=== PATIENT | male | born 1960 | race Hispanic/Latino ===

== ENCOUNTER 2018-05-09 08:05 | Emergency (ER) | payer BC | END 2018-05-09 08:45 | disposition home or self-care (01) | LOC: ERS 08:05 | DX: L03.116 Cellulitis of left lower limb (principal); I10 Essential (primary) hypertension | CPT/HCPCS: 99283 ==

== ENCOUNTER 2020-06-30 10:14 | Emergency (ER) | payer BC ==
--- NOTE | 2020-06-30 11:23 | CT ---
CT BRAIN NONCONTRAST: DATE: 06/30/2020 HISTORY: 60-year-old male status post acute head trauma: fall. FINDINGS: There is no midline shift or any other mass effect. There is no evidence of acute intracranial hemor rhage, large cortical infarct, obstructive hydrocephalus, or extraaxial fluid collection. The calvar ium is intact. IMPRESSION: No acute intracranial findings. jn [] POS: [facility]
--- NOTE | 2020-06-30 11:23 | CT ---
CT CERVICAL SPINE NONCONTRAST: DATE: 06/30/2020 HISTORY: 60-year-old male status post acute cervical trauma from fall. FINDINGS: There are no jumped or perched facets. There is no evidence of acute fracture. The vertebral body h eights are maintained. There is no prevertebral soft tissue swelling. IMPRESSION: No evidence of acute fracture or acute traumatic subluxation. [email or web address] [] POS: [facility]
--- NOTE | 2020-06-30 11:24 | CT ---
CT FACIAL BONES: Date: 06/30/2020 INDICATION: Injury to nose and face. FINDINGS: There is a fracture involving the right nasal bone with associated overlying soft tissue edema. No si gnificant displacement. The orbits appear intact. Lamina papyracea appear intact. Zygoma appear intact. Paranasal sinuses are well aerated. The maxilla appears intact. Mandible appears intact. IMPRESSION: Fracture right nasal bone without significant displacement. POS: [facility]
--- NOTE | 2020-06-30 11:26 | RAD ---
LEFT FOREARM 2 VIEWS: Date: 06/30/2020 HISTORY: Fall, left forearm pain. FINDINGS/IMPRESSION: The left radius and ulna appear intact. POS: [facility]
--- NOTE | 2020-06-30 11:26 | RAD ---
LEFT ANKLE 3 VIEWS: Date: 06/30/2020 HISTORY: Fall, left ankle pain. FINDINGS/IMPRESSION: Soft tissue swelling is present. The ankle mortise is maintained. No acute fracture or dislocation se en. POS: [facility]
[2020-06-30] MEDS ORDERED: Ibuprofen 800 MG TAB ONE (12:19)
[2020-06-30] MEDS ORDERED: Acetaminophen 500 MG TAB ONE (12:19)
== END 2020-06-30 13:41 | disposition home or self-care (01) ==
LOC: ERS 10:14
DX: S93.402A Sprain of unspecified ligament of left ankle, initial encounter (principal); S00.83XA Contusion of other part of head, initial encounter; S50.12XA Contusion of left forearm, initial encounter; M54.2 Cervicalgia; I10 Essential (primary) hypertension; W17.89XA Other fall from one level to another, initial encounter
CPT/HCPCS: 70450; 70486; 72125